=== PATIENT | male | born 1980 | race Caucasian/White ===

== ENCOUNTER 2019-07-21 18:16 | Observation (INO) | payer OTHER, SELFPAY ==
[2019-07-21 17:37] VITALS: BMI 30.1
[2019-07-21 17:41] VITALS: BP 144/88; PULSE 84; RESP 18; TEMP 36.7; O2SAT 96
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
--- NOTE | 2019-07-21 18:38 | PCM.HP.STD ---
Problem List (1) Prostatitis Status: Acute Qualifiers: Prostatitis type: acute Qualified Code(s): N41.0 - Acute prostatitis History of Present Illness Date of Admission: 07/21/19 Chief Complaint: prostatitis The patient is a 38 year old male admitted direct ER transfer from [facility] in [place], they report he has been to ER multiple times with prostatitis and pain with no resolution prior CT scan at [facility] showed prostate inflammation, WBC is normal, admitted for inpatient IV antibiotics since has failed out patient therapy. Patient asking for pain meds specifically wants IV dilaudid and phenergan. Past Medical History Allergies clindamycin Allergy (Verified 07/21/19 17:40) Nausea Surgical History: no surgical history Review of Systems Constitutional: Denies: Chills, Fever, Weight Change HEENT: Denies: Head Aches, Sinus Congestion, Sinus Drainage Cardiovascular: Denies: Chest Pain, Palpitations Respiratory: Denies: Cough, Shortness of breath at rest, Sputum production Gastrointestinal: Denies: Abdominal Pain, Nausea, Vomiting Genitourinary: Denies: Dysuria Musculoskeletal: Denies: Joint Pain, Joint Tenderness Skin: Denies: Rash, Wounds Neurological: Denies: Numbness, Tingling, Focal weakness Psychiatric: Denies: Anxiety, Depression, Homicidal Ideations, Suicidal Ideations Hematologic/ Lymphatic: Denies: Easy Bruising, Easy Bleeding VTE Information - Inpt Only VTE Present on Admission: No Patient Problems: Active and Suspected Problems Prostatitis (Acute) - Physical Exam Vitals/I&O's: Vital Signs Temp Pulse Resp BP Pulse Ox 98.1 F 84 18 144/88 H 96 07/21/19 17:41 07/21/19 17:41 07/21/19 17:41 07/21/19 17:41 07/21/19 17:41 Oxygen Delivery Method Room Air Weight: 95.254 kg Body Mass Index (BMI) 30.1 Current Medications Acetaminophen (Tylenol) 1,000 mg PO Q6H PRN PRN PRN Reason: Pain Score 1-1010 Ketorolac Tromethamine (Toradol (Bkc)) 15 mg IV Q6H PRN PRN PRN Reason: Pain Score 1-1010 Stop: 07/26/19 18:13 Ondansetron HCl (Zofran) 4 mg IV Q6H PRN PRN PRN Reason: NAUSEA Sodium Chloride () 10 - 40 ml IV UD PRN PRN Reason: SALINE FLUSH Assessment/Plan All Active Problems Prostatitis (Acute) Admit start IV levaquin start Flomax non -narcotics for pain control, toradol etc will do CT scan to rule out stone or abscess formation. will see patient in AM.
[2019-07-21] MEDS: 0.9% Saline Lock 10 ML Syringe IV ×2 (18:43→20:21)
[2019-07-21] MEDS: Ketorolac 15 MG/ML Vial IV (18:43)
[2019-07-21] MEDS: Acetaminophen 500 MG Tablet 1000 MG PO (20:06)
[2019-07-21] MEDS: oxyCODONE 5 MG Tablet PO (20:06)
[2019-07-21 20:31] VITALS: BP 141/85; PULSE 59; RESP 16; TEMP 36.5; O2SAT 99
[2019-07-21] MEDS: levoFLOXacin IV 500 MG/100 ML BAG 100 MG IV (20:42)
[2019-07-21] MEDS: Zolpidem Tartrate 5 MG Tablet PO (21:47)
[2019-07-21] MEDS: Ondansetron 4 MG/2 ML Vial IV (23:00)
[2019-07-21 23:04] VITALS: BP 168/78; PULSE 96; RESP 20; TEMP 36.9; O2SAT 97
[2019-07-22] MEDS: oxyCODONE 5 MG Tablet PO (00:22)
[2019-07-22] MEDS: Ketorolac 15 MG/ML Vial IV ×2 (00:43→07:33)
[2019-07-22] MEDS: Acetaminophen 500 MG Tablet 1000 MG PO (02:07)
[2019-07-22 02:10] VITALS: BP 148/93; PULSE 79; RESP 16; TEMP 36.9; O2SAT 95
[2019-07-22] MEDS: 0.9% Saline Lock 10 ML Syringe IV (02:59)
[2019-07-22 06:35] LABS: Absolute Lymphocyte Count 1.24 X10^3/uL (0.83-4.51); Absolute Neutrophil Count 3.7 X10^3/uL (2.0-7.7); Basophil# 0.02 X10^3/uL; Basophil% 0.4 % (0-1); Eosinophil# 0.13 X10^3/uL; Eosinophils% 2.4 % (0-5); Hematocrit 46.9 % (40-54); Hemoglobin 15.4 g/dL (13.0-16.5); Lymphocyte # 1.24 X10^3/ul (4.0); Lymphocyte % 22.5 % (19-41); Mean Corp Hgb Conc 32.8 g/dL (32-36); Mean Corpuscular Hgb 27.7 pg (27.0-32.0); Mean Corpuscular Volume 84.5 fL (80-94); Mean Platelet Vol. 8.8 fl (6.2-12.0); Monocyte# 0.43 X10^3/uL; Monocyte% 7.8 % (0-10); NRBC Flagged by Analyzer 0 % (0-5); Neutrophil # 3.67 X10^3/uL (2.7-7.7); Neutrophil % 66.5 % (47-70); Platelet Count 236 K/mm3 (150-450); RBC Distribution Width CV 16.3 % (11.6-14.6); RBC Distribution Width SD 49.9 fl (35.1-43.9); Red Blood Count 5.55 M/mm3 (4.6-6.2); White Blood Count 5.5 K/mm3 (4.4-11.0)
--- NOTE | 2019-07-22 06:53 | PCM.PROGNOTE ---
Patient Problems: Active and Suspected Problems Prostatitis (Acute) Subjective: 38-year-old male who is down in [facility], was accepted as a transfer is told the patient had severe prostatitis, white blood count is normal, on exam his complaint is mostly of testicle pain both sides, says this is chronic for the last year, he had a vasectomy in the past and ever since then has been having pain off and on the testicles., His white count is completely normal, is no fevers, CT scan is normal no abscess or abnormalities I reviewed the CAT scan myself I do not see any significant stranding around the prostate it was read as mild prostatitis but there is no stranding there is no swelling in the prostate. On exam testicles are sensitive but there is no masses the epididymis is normal. - Physical Exam Vitals/I&O's: Vital Signs Temp Pulse Resp BP Pulse Ox 98.4 F 79 16 148/93 H 95 07/22/19 02:10 07/22/19 02:10 07/22/19 02:10 07/22/19 02:10 07/22/19 02:10 Oxygen Delivery Method Room Air Weight: 95.254 kg Body Mass Index (BMI) 30.1 Intake and Output for Last 24 Hours 07/20/19 07/21/19 07/22/19 23:59 23:59 23:59 Intake Total 100 / 400 800 / 800 Balance 100 / 400 800 / 800 General: Alert, Oriented x3, Cooperative HEENT: Atraumatic, PERRLA, EOMI, Normocephalic Neck: Supple, No JVD, Negative Carotid Bruits Lungs: Clear to auscultation, Normal air movement Cardiovascular: Regular rate, No murmurs Abdomen: Bowel Sounds Present, Soft, Non Tender Extremities: No edema, Capillary Refill Less than 3 Seconds Skin: No rashes, No breakdown Musculoskeletal: No Tenderness to Palpation of Joints or Extremities Neurological: Cranial nerves II-XII grossly intact Psych/Mental Status: Normal Affect, Appropriate Comment: Testicles exam was normal no masses slightly tender and sensitive. Laboratory Results 07/22/19 06:15: WBC 5.5, RBC 5.55, Hgb 15.4, Hct 46.9, MCV 84.5, MCH 27.7, MCHC 32.8, RDW Std Deviation 49.9 H, RDW Coeff of Conor 16.3 H, Plt Count 236, MPV 8.8, Immature Gran % (Auto) 0.400, Neut % (Auto) 66.5, Lymph % (Auto) 22.5, [place] % (Auto) 7.8, Eos % (Auto) 2.4, Baso % (Auto) 0.4, Absolute Neuts (auto) 3.7, Absolute Lymphs (auto) 1.24, Nucleated RBC % 0 07/22/19 06:15: Sodium Pending, Potassium Pending, Chloride Pending, Carbon Dioxide Pending, Anion Gap Pending, BUN Pending, Creatinine Pending, Est GFR (MDRD) Af Amer Pending, Est GFR (MDRD) Non-Af Pending, BUN/Creatinine Ratio Pending, Glucose Pending, Calcium Pending Current Medications Acetaminophen (Tylenol) 1,000 mg PO Q6H PRN PRN PRN Reason: Pain Score 1-10 Last Admin: 07/22/19 02:07 Dose: 1,000 mg Documented by: Al Hydroxide/Mg Hydroxide (Mylanta Ii) 30 ml PO Q6H PRN PRN PRN Reason: Gastric Burning Levofloxacin (Levaquin Iv) 500 mg in 100 mls @ 100 mls/hr IV Q24 JANIE Stop: 08/18/19 11:00 Last Infusion: 07/21/19 21:45 Dose: Infused Documented by: Ketorolac Tromethamine (Toradol (Bkc)) 15 mg IV Q6H PRN PRN PRN Reason: Pain Score 1-12/19 Stop: 07/26/19 18:13 Last Admin: 07/22/19 00:43 Dose: 15 mg Documented by: Ondansetron HCl (Zofran) 4 mg IV Q6H PRN PRN PRN Reason: NAUSEA Last Admin: 07/21/19 23:00 Dose: 4 mg Documented by: Sodium Chloride () 10 - 40 ml IV UD PRN PRN Reason: SALINE FLUSH Last Admin: 07/22/19 02:59 Dose: 10 ml Documented by: Tamsulosin HCl (Flomax) 0.4 mg PO DAILY@1730 JANIE Zolpidem Tartrate (Ambien (Generic)) 5 mg PO QHS PRN PRN PRN Reason: INSOMNIA Last Admin: 07/21/19 21:47 Dose: 5 mg Documented by: Medical Necessity - Tobacco Use Smoking Status: Never smoker Tobacco Use: Non-smoker Assessment/Plan All Active Problems Prostatitis (Acute) 38-year-old male presents the hospital as a transfer from an outside emergency room but we will discharge him home and home see a reason to keep him in the hospital his white blood count is normal his CAT scan was read as mild prostatitis on exam the testicles are normal no masses he reports having an ultrasound of the testicles just recently done at [facility] in the hospital that was read as normal. He is somewhat frustrated with situation and why he is having testicle pain is so severe and has been going on for over a year, I am to give him 10 days of doxycycline and 10 days of an anti-inflammatory, no narcotics, is very possible he could have chronic epididymitis which is managed with either pain management, microsurgery, very rarely vasectomy reversal. Told the patient that unfortunately I do not take his insurance so I will not be able to see him as an outpatient also I cannot offer him any of the surgeries since is out of my specialty. He can follow-up with his family physician and his family physician can refer him to a urologist within his network for his chronic epididymitis. He is agreeable with that plan will be discharged home today.
--- NOTE | 2019-07-22 06:57 | DCINST_ITS ---
Discharge Diet: Light diet - advance as tolerated Discharge Activity: Return to Normal Activity Allergies/Adverse Reactions: Allergies clindamycin Allergy (Verified 07/21/19 17:40) Nausea Medications to take at Discharge Esomeprazole Mag Trihydrate [Nexium] 40 mg PO BID 07/21/19 Famotidine [Pepcid] 20 mg PO BID 07/21/19 Doxycycline 100 mg PO BID #20 cap 07/22/19 Naproxen [Naprosyn] 500 mg PO BID #20 tab 07/22/19 The following prescriptions were given: Doxycycline 100 mg PO BID #20 cap Prescription Printed Naproxen [Naprosyn] 500 mg PO BID #20 tab Prescription Printed Primary Care Physician: Rosalina CHU [Other] Test Results: Test results from this visit will be discussed in further detail at your follow- up appointment, if applicable.
[2019-07-22 06:59] LABS: Anion Gap 7 (5-15); BUN 18 mg/dL (7-18); BUN/Creat Ratio 16.1 RATIO (10-20); Calcium,Total 8.6 mg/dL (8.5-10.1); Chloride 102 mmol/L (98-107); Creatinine, Serum 1.12 mg/dL (0.70-1.30); EST Glomerular Filtration Rate 78 mL/min (>60); Est Glom Filt Rate - Afr Amer 94 mL/min (>60); Estimated Creatinine Clearance 92.34 ml/min; Glucose 88 mg/dL (74-106); Potassium 3.7 mmol/L (3.5-5.1); Sodium Level 136 mmol/L (136-145)
[2019-07-22 08:50] VITALS: BP 140/78; PULSE 78; RESP 18; TEMP 36.8; O2SAT 96
== END 2019-07-22 09:05 | disposition home or self-care (01) ==
LOC: MS3 19:35 → MS3OUT 07-23 07:40 → MS3 07-23 07:41
PROVIDERS: Admitting Provider Urology; Visit Provider Urology
DX: N41.0 Acute prostatitis (principal)
CPT/HCPCS: 74178; 80048; 85025; 96365; 96375; 96376; 99218; Q9967; A4216; G0378; G0379; J2405